=== PATIENT | male | born 1955 | race Caucasian/White ===

== ENCOUNTER 2017-11-11 00:08 | Inpatient (IN) | payer OTHER ==
[~2017-11-11] VITALS: Ht 182.9 cm; Wt 121.6 kg
[2017-11-11] VITALS (7 sets, daily range): BP systolic 118–173; BP diastolic 62–88
[~2017-11-11 00:08] MED LIST: FISH OIL300 MG; MULTI-VITAMIN1 EACH; ULTRAM50 MG PO
[2017-11-11] MEDS ORDERED: KETOROLAC TROMETHAMINE 30 MG/ML VIAL IV STA (00:13)
[2017-11-11 00:27] LABS: BASOPHILS % 0.4 % (0.0-1.0); EOSINOPHILS # (AUTO) 0.1 (0.0-0.4); EOSINOPHILS % 0.9 % (0.0-6.0); HEMATOCRIT 45.2 % (38.2-49.6); HEMOGLOBIN 15.1 g/dL (14.0-18.0); LYMPHOCYTES # (AUTO) 1.2 (1.0-3.2); LYMPHOCYTES % 11.2 % (18.0-39.1); MEAN CORPUSCULAR HEMOGLOBIN 29.4 pg (28-32); MEAN CORPUSCULAR HGB CONC 33.4 g/dL (31-35); MEAN CORPUSCULAR VOLUME 87.9 fL (81-99); MONOCYTES # (AUTO) 0.4 (0.2-0.8); NEUTROPHILS # (AUTO) 8.9 (2.1-6.9); NEUTROPHILS % 83.1 % (38.7-80.0); PLATELET COUNT 142 x10e3/uL (140-360); RED BLOOD COUNT 5.14 x10e6/uL (4.3-5.7); RED CELL DISTRIBUTION WIDTH 14.2 % (11.7-14.4)
[2017-11-11 00:32] LABS: BILIRUBIN,URINE NEGATIVE (NEGATIVE); CLARITY,URINE CLEAR (CLEAR); COLOR,URINE YELLOW (YELLOW); KETONES,URINE NEGATIVE (NEGATIVE); LEUKOCYTE ESTERASE ,URINE 1+ (NEGATIVE); NITRITE,URINE NEGATIVE (NEGATIVE); PROTEIN,URINE DIPSTICK NEGATIVE (NEGATIVE); URINE UROBILINOGEN 0.2 mg/dL (0.2 - 1)
[2017-11-11 00:35] LABS: EPITHELIAL CELLS,URINE FEW /LPF
[2017-11-11 00:36] LABS: MUCUS,URINE MODERATE (RARE)
[2017-11-11 00:47] LABS: ALBUMIN 4.3 g/dL (3.5-5.0); ALBUMIN/GLOBULIN RATIO 1.7 (0.8-2.0); ANION GAP 14.8 mmol/L (8-16); CALCIUM 9.5 mg/dL (8.4-10.2); CREATININE, SERUM 1.55 mg/dL (0.72-1.25); POTASSIUM 3.8 mmol/L (3.5-5.1)
--- NOTE | 2017-11-11 01:33 | Diagnostic Imaging Report ---
EXAM: CT ABDOMEN/PELVIS WO DATE: 11/11/2017 12:13 AM INDICATION: Right-sided pain, stone COMPARISON: 09/26/2015 TECHNIQUE: The abdomen and pelvis were scanned using a multidetector helical scanner. Coronal and sagittal reformations were obtained. Routine protocol performed. IV Contrast: 0 ml Isovue 300/370 FINDINGS: Lack of IV contrast decreases sensitivity in evaluating abdominal and pelvic organs. LOWER THORAX: Right middle lobe calcified granulomas and nonspecific 5 mm subpleural nodule. LIVER/BILIARY: Diffuse low-attenuation in keeping with hepatic steatosis. GALLBLADDER: Unremarkable SPLEEN: Unremarkable PANCREAS: Unremarkable ADRENALS: No nodules KIDNEYS: Left kidney: Left posterior renal cystic structures again noted. Mild left hydronephrosis related to a 6 mm proximal ureteral/UPJ stone; associated perinephric/periureteral stranding. Additional nonobstructing 3 mm left interpolar calculus. Right kidney: Mild right hydroureteronephrosis related to a 11 mm proximal ureteral calculus; no significant associated stranding. Additional nonobstructing 4 mm inferior renal calculus. GI TRACT: No wall thickening or evidence of obstruction. VESSELS: Mild atherosclerotic calcifications PERITONEUM/RETROPERITONEUM: No free air or fluid LYMPH NODES: No lymphadenopathy REPRODUCTIVE ORGANS/BLADDER: Suboptimally assessed due to streak artifact. Decompressed bladder. SOFT TISSUES: Multiple complex ventral bowel containing hernias without evidence of obstruction. Partially imaged nonobstructing bowel containing left inguinal hernia. BONES: Partially visualized left hip arthroplasty. Multilevel degenerative changes. IMPRESSION: 1. Mild left hydronephrosis related to a 6 mm proximal ureteral/UPJ stone with moderate inflammatory changes. 2. Mild right hydroureteronephrosis related to an 11 mm proximal ureteral calculus Signed by: Dr Shanita Paige MD on 11/11/2017 1:30 AM
[2017-11-11] MEDS ORDERED: AMLODIPINE-BEN1 EAC4 PO (01:38)
[2017-11-11] MEDS ORDERED: ONDANSETRON HCL INJ 2 MG/ML VIAL IV PRN (02:00)
[2017-11-11] MEDS ORDERED: HYDROMORPHONE 1MG/1ML INJ IV PRN (02:00)
[2017-11-11] MEDS: CEFTRIAXONE SOD 1 GM VIAL IV SCH (02:18)
[2017-11-11] MEDS: SODIUM CHLORIDE 0.9% 1000ML 1,000 ML IV SCH ×2 (02:18→20:00)
--- NOTE | 2017-11-11 07:58 | Consultation ---
DATE OF CONSULTATION: November 11, 2017 Consultation was called by Dr. Shah in the emergency room. CHIEF COMPLAINT/REASON FOR CONSULTATION: Bilateral ureteral calculi. HISTORY OF PRESENT ILLNESS: Mr. Gavin is a 62-year-old male being in his normal state of health and began experiencing sharp severe right-sided flank pain. Denied dysuria. Denied gross hematuria. PAST MEDICAL HISTORY: Notable for multiple abdominal surgeries last in 2016 and ex lap, hypertension, status post total hip, status post knee surgery. MEDICATIONS: Please see MAR. ALLERGIES: NKDA. SOCIAL HISTORY: Quit tobacco in 2005. FAMILY HISTORY: No urologic stones or malignancies. REVIEW OF SYSTEMS: Noncontributory for all systems. PHYSICAL EXAMINATION GENERAL: Elderly male in no acute distress. VITALS: Temperature 99, pulse 97, respirations 20, blood pressure 134/78. HEENT: Sclerae anicteric. NECK: Supple. BACK: Without costovertebral angle tenderness bilaterally currently. ABDOMEN: Soft. It is nontender. It is nondistended. There is no palpable mass. No palpable hernias. No palpable inguinal adenopathy. : Normal male external genitalia. EXTREMITIES: Without edema in the lower extremities. PSYCH: Alert and mood is appropriate. SKIN: Intact. Normal color. LABORATORY DATA: A CT scan revealing bilateral mild hydronephrosis, left posterior renal cystic structure, mild left hydronephrosis with a 6 mm left proximal UPJ stone. An additional 3 mm left midpole stone. Mild right hydronephrosis and an 11 mm proximal ureteral calculus, and a 4 mm right lower pole calculus. Multiple complex ventral bowel hernias without obstruction. Left hip arthroplasty. Urinalysis with 6-10 reds and 6-10 whites. AST 39, ALT of 66, bilirubin 1.6. Sodium 141, potassium 3.8, chloride 110, bicarb 20, BUN 18, creatinine 1.55, glucose 146. Hemoglobin 15, hematocrit 45, platelet count 142,000, and white cell count 10,700. IMPRESSION 1. Bilateral ureteral calculi. 2. Bilateral renal calculi. 3. Bilateral hydronephrosis, mild. 4. Microscopic hematuria. 5. Question of urinary tract infection. 6. Renal colic. 7. Hypertension. PLAN: The patient has been on broad-spectrum antibiotics as he has mild hydronephrosis and is minimally symptomatic. Will employ a brief trial of passage for the 6-mm stone on the left. Should this fail, the patient would benefit from bilateral stenting and shockwave lithotripsy. Thank you for allowing me to participate in the care of your patient. We will be happy to follow along with you. Job#: [id number] [place]
--- NOTE | 2017-11-11 08:08 | Diagnostic Imaging Report ---
PROCEDURE:X-RAY ABDOMEN - KUB COMPARISON:[facility], CT, CT ABDOMEN/PELVIS WO, 11/11/2017, 0:41. INDICATIONS:CALCULUS OF KIDNEY FINDINGS: There is a 1 cm proximal right ureteral stone. Right interpolar renal stone measures 3.5 mm. Proximal left ureteral stone measures 6.6 mm. There is also a small left interpolar stone. There are no dilated loops of bowel to suggest obstruction. There are no masses. Left pelvic calcification appears compatible with a phlebolith. There is no evidence of free air. No acute osseous abnormalities are present. Left femoral prosthesis partially visualized. CONCLUSION: Bilateral nephrolithiasis. Pérez James D.O. Dictated by: Pérez James D.O. on 11/11/2017 at 8:13 Electronically approved by: Pérez James D.O. on 11/11/2017 at 8:13
[2017-11-11] MEDS ORDERED: NON-FORMULARY MEDICATION (Amlodipine Besylate/Benazepril (Amlodipine-Benazepril 5-40 Mg) 1 PO SCH (09:00)
[2017-11-11] MEDS: AMLODIPINE BESYLATE 5 MG TAB PO SCH (10:03)
[2017-11-11] MEDS: BENAZEPRIL HCL 10 MG TAB PO SCH (10:03)
[2017-11-12] VITALS (7 sets, daily range): BP systolic 129–152; BP diastolic 66–101
[2017-11-12] MEDS: CEFTRIAXONE SOD 1 GM VIAL IV SCH (01:44)
[2017-11-12 04:50] LABS: BASOPHILS % 0.5 % (0.0-1.0); EOSINOPHILS # (AUTO) 0.4 (0.0-0.4); EOSINOPHILS % 7.4 % (0.0-6.0); HEMOGLOBIN 13.1 g/dL (14.0-18.0); LYMPHOCYTES # (AUTO) 2.3 (1.0-3.2); LYMPHOCYTES % 39.6 % (18.0-39.1); MEAN CORPUSCULAR HEMOGLOBIN 29.3 pg (28-32); MEAN CORPUSCULAR HGB CONC 34.5 g/dL (31-35); MONOCYTES # (AUTO) 0.5 (0.2-0.8); MONOCYTES % 7.9 % (4.4-11.3); NEUTROPHILS # (AUTO) 2.6 (2.1-6.9); NEUTROPHILS % 44.4 % (38.7-80.0); PLATELET COUNT 137 x10e3/uL (140-360); RED BLOOD COUNT 4.47 x10e6/uL (4.3-5.7); RED CELL DISTRIBUTION WIDTH 14.1 % (11.7-14.4)
[2017-11-12 05:07] LABS: ALANINE AMINOTRANSFERASE 50 IU/L (0-55); ALBUMIN 3.3 g/dL (3.5-5.0); ALBUMIN/GLOBULIN RATIO 1.7 (0.8-2.0); ALKALINE PHOSPHATASE 49 IU/L (40-150); ANION GAP 11.9 mmol/L (8-16); BLOOD UREA NITROGEN 14 mg/dL (7-26); BUN/CREATININE RATIO 14 (6-25); CALCIUM 8.3 mg/dL (8.4-10.2); CARBON DIOXIDE 22 mmol/L (22-29); CHLORIDE 113 mmol/L (98-107); EST GLOMERULAR FILTRATION RATE > 60 ML/MIN (60-); GLUCOSE 93 mg/dL (74-118); POTASSIUM 3.9 mmol/L (3.5-5.1); SODIUM 143 mmol/L (136-145)
[2017-11-12] MEDS: BENAZEPRIL HCL 10 MG TAB PO SCH (08:37)
[2017-11-12] MEDS: AMLODIPINE BESYLATE 5 MG TAB PO SCH (08:37)
--- NOTE | 2017-11-12 11:47 | Operative Report ---
DATE OF PROCEDURE: November 12, 2017 PREOPERATIVE DIAGNOSIS: Right ureteral stone. POSTOPERATIVE DIAGNOSIS: Right ureteral stone. PROCEDURES 1. Staged right-sided shockwave lithotripsy. 2. Supervision of fluoroscopy. ANESTHESIA: General. ESTIMATED BLOOD LOSS: Minimal. COMPLICATIONS: None. INDICATIONS: Mr. Gavin is a very pleasant 62-year-old male with a history of a large 10 x 11 mm right proximal ureteral stone. He and I had a long discussion about alternatives, risks and benefits, including doing nothing, shock wave lithotripsy, ureteroscopy, percutaneous surgery and open surgery, and inclusive of fact of the placement of a stent and recommendation for this. The patient states from his internet research he would like to try to the noninvasive approach first. Should this fail, will likely place him on . He voiced understanding of the options, alternatives, risks and benefits and elected to proceed. PROCEDURE IN DETAIL: After informed consent was obtained, the patient was taken to the operative suite, placed supine and underwent general anesthesia by the anesthesia service. The stone was then localized in the X, Y and Z planes. A total of 3000 shocks at a maximum power setting of 7 were delivered to the stone. The patient tolerated the procedure well and was transported to the recovery room in excellent condition. SUPERVISION OF FLUOROSCOPY: I was present throughout the entire procedure and I supervised the use of fluoroscopy for all 59 seconds. Total radiation dose of 57.2 milligrades per meter squared. Job#: [id number]
[2017-11-12] MEDS ORDERED: DEXAMETHASONE SOD PHOS INJ 4 MG/ML VIAL ONE (17:53)
[2017-11-12] MEDS ORDERED: SEVOFLURANE INHAL SOLN 250 ML PEN BTL ONE (17:53)
[2017-11-12] MEDS ORDERED: ONDANSETRON HCL INJ 2 MG/ML VIAL ONE (17:53)
[2017-11-12] MEDS ORDERED: PROPOFOL IV EMULSION 10 MG/ML 20 ML VIAL ONE (17:53)
[2017-11-12] MEDS ORDERED: LIDOCAINE HCL 2% LOCAL INJ 5 ML SDV VIAL INJ ONE (17:53)
[2017-11-12] MEDS ORDERED: ACETAMINOPHEN 1000 MG/100 ML IV ONE (17:53)
[2017-11-12] MEDS ORDERED: FENTANYL CITRATE/PF 100MCG/2 ML INJ ONE (18:12)
[2017-11-12] MEDS ORDERED: MIDAZOLAM HCL 2 MG/2 ML VIAL ONE (18:12)
[2017-11-12] MEDS: SODIUM CHLORIDE 0.9% 1000ML 1,000 ML IV SCH (22:38)
[2017-11-13] VITALS: BP 137/71
[2017-11-13] MEDS: CEFTRIAXONE SOD 1 GM VIAL IV SCH (02:33)
[2017-11-13 04:00] VITALS: BP 137/72
[2017-11-13 07:30] VITALS: BP 137/81
[2017-11-13 07:53] VITALS: BP 137/81
[2017-11-13] MEDS: BENAZEPRIL HCL 10 MG TAB PO SCH (08:59)
[2017-11-13] MEDS: AMLODIPINE BESYLATE 5 MG TAB PO SCH (08:59)
[2017-11-13 11:53] VITALS: BP 130/81
== END 2017-11-13 14:37 | disposition home or self-care (01) | DRG 660 ==
LOC: ER 00:08 → ERHOLD 01:58 → MED/SURG3 02:44
PROC: 0TC08ZZ Extirpation of Matter from Right Kidney, Via Natural or Artificial Opening Endoscopic (ICD-10-PCS; principal; 2017-11-12 06:38)
DX: N13.2 Hydronephrosis with renal and ureteral calculous obstruction (principal); N20.2 Calculus of kidney with calculus of ureter; Z87.891 Personal history of nicotine dependence; R31.29 Other microscopic hematuria; N39.0 Urinary tract infection, site not specified; I10 Essential (primary) hypertension; K76.0 Fatty (change of) liver, not elsewhere classified
CPT/HCPCS: 36415; 50590; 74018; 74176; 80053; 81001; 85025; 99284; J0696; J1100; J1885; J2001; J2250; J2405; J7030

== ENCOUNTER → 2017-12-04 | Day surgery (SDC) | payer OTHER ==
[~2017-12-04] MED LIST changes: +AMLODIPINE-BEN1 EAC4 PO; +ASPIRIN81 MG PO; +BIOTIN PO; +CALCIUM PO; +CEFTRIAXONE SOD 1 GM VIAL ONE; +DEXAMETHASONE SOD PHOS INJ 4 MG/ML VIAL ONE; +FENTANYL CITRATE/PF 100MCG/2 ML INJ ONE; +FLOMAX0.4 MG PO; +GLUCOSAMINE &1 EAC1 PO; +LIDOCAINE HCL 2% LOCAL INJ 5 ML SDV VIAL INJ ONE; +MIDAZOLAM HCL 2 MG/2 ML VIAL ONE; +OMEGA 3 FISH O1 EACH PO; +ONDANSETRON HCL INJ 2 MG/ML VIAL ONE; +PENICILLIN V P500 MG PO; +PROPOFOL IV EMULSION 10 MG/ML 20 ML VIAL ONE; +SEVOFLURANE INHAL SOLN 250 ML PEN BTL ONE; +ULTRAM 50MG50 MG PO; +VITAMIN C1000 MG PO; +ZINC PO; +ZYRTEC10 MG PO
--- NOTE | 2017-12-04 07:12 | Diagnostic Imaging Report ---
PROCEDURE:X-RAY ABDOMEN - KUB COMPARISON:KUB 11/11/17. INDICATIONS:PRE-OP FINDINGS: Bilateral calcifications overlying the kidneys appear unchanged from prior KUB, including a 1 cm proximal ureteral stone, right interpolar stone measuring 3.5 mm, and proximal left ureteral stone measuring 6.6 mm. Additional small left interpolar stone is unchanged. Phlebolith projects over the pelvis. There is a non-obstructed bowel-gas pattern. There are no acute osseous abnormalities. The lung bases are clear. CONCLUSION: Bilateral nephrolithiasis, similar to KUB on 11/11/17. Dictated by: NUPUR ALVARENGA M.D. on 12/04/2017 at 7:18 Electronically approved by: NUPUR ALVARENGA M.D. on 12/04/2017 at 7:18
--- NOTE | 2017-12-04 08:47 | Operative Report ---
DATE OF PROCEDURE: December 04, 2017 PREOPERATIVE DIAGNOSIS: Left ureteral calculus. POSTOPERATIVE DIAGNOSIS: Left ureteral calculus. PROCEDURES: 1. Staged shockwave lithotripsy. 2. Supervision of fluoroscopy. ANESTHESIA: General. ESTIMATED BLOOD LOSS: Minimal. COMPLICATIONS: None. INDICATIONS FOR PROCEDURE: Mr. Gavin is a very pleasant 62-year-old male with bilateral ureteral calculi. He and I had a long discussion regarding the alternatives, risks and benefits including doing nothing, shockwave lithotripsy, ureteroscopy, percutaneous surgery, and open surgery. He voiced understanding of the options, alternatives, risks and benefits. As shockwave lithotripsy has worked on the right side, he elected to proceed with this on the left side. PROCEDURE IN DETAIL: After informed consent was obtained, the patient was taken to the operative suite. He was placed on lithotripsy table. He underwent general anesthesia by the anesthesia services. The stone was then localized in the X, Y, and Z planes. A total of 3000 shocks at a maximum power setting of 6 delivered to the stone. Patient tolerated the procedure well and was transported to the recovery room in excellent condition. SUPERVISION OF FLUOROSCOPY: I was present throughout the entire procedure and I supervised the use of fluoroscopy as no radiologist was present. Job#: [id number]
== END | disposition home or self-care (01) ==
LOC: OR 05:11
PROVIDERS: ATTEND Urology
DX: N20.1 Calculus of ureter (principal); N39.0 Urinary tract infection, site not specified; N13.30 Unspecified hydronephrosis; N40.1 Benign prostatic hyperplasia with lower urinary tract symptoms; R35.1 Nocturia; N13.8 Other obstructive and reflux uropathy; I10 Essential (primary) hypertension; Z01.810 Encounter for preprocedural cardiovascular examination; Z79.82 Long term (current) use of aspirin; Z68.38 Body mass index [BMI] 38.0-38.9, adult; Z96.642 Presence of left artificial hip joint; Z87.891 Personal history of nicotine dependence
CPT/HCPCS: 50590; 74018; 93005; J0696; J1100; J2001; J2250; J2405

== ENCOUNTER 2018-11-20 16:26 | Inpatient (IN) | payer OTHER ==
[~2018-11-20] VITALS: Ht 182.9 cm; Wt 124.4 kg
[~2018-11-20 16:26] MED LIST changes: -CEFTRIAXONE SOD 1 GM VIAL ONE; -DEXAMETHASONE SOD PHOS INJ 4 MG/ML VIAL ONE; -FENTANYL CITRATE/PF 100MCG/2 ML INJ ONE; -LIDOCAINE HCL 2% LOCAL INJ 5 ML SDV VIAL INJ ONE; -MIDAZOLAM HCL 2 MG/2 ML VIAL ONE; -ONDANSETRON HCL INJ 2 MG/ML VIAL ONE; -PROPOFOL IV EMULSION 10 MG/ML 20 ML VIAL ONE; -SEVOFLURANE INHAL SOLN 250 ML PEN BTL ONE
[2018-11-20] MEDS ORDERED: SODIUM CHLORIDE 0.9% 1000ML 1,000 ML IV STA (16:58)
[2018-11-20 17:21] LABS: BASOPHILS % 0.1 % (0.0-1.0); EOSINOPHILS % 0.2 % (0.0-6.0); HEMATOCRIT 43.9 % (38.2-49.6); HEMOGLOBIN 15.2 g/dL (14.0-18.0); LYMPHOCYTES % 4.8 % (18.0-39.1); MEAN CORPUSCULAR HEMOGLOBIN 29.5 pg (28-32); MEAN CORPUSCULAR HGB CONC 34.6 g/dL (31-35); MEAN CORPUSCULAR VOLUME 85.2 fL (81-99); MONOCYTES # (AUTO) 1.5 (0.2-0.8); MONOCYTES % 7.4 % (4.4-11.3); NEUTROPHILS # (AUTO) 17.6 (2.1-6.9); NEUTROPHILS % 86.7 % (38.7-80.0); PLATELET COUNT 151 x10e3/uL (140-360); RED BLOOD COUNT 5.15 x10e6/uL (4.3-5.7); RED CELL DISTRIBUTION WIDTH 14.2 % (11.7-14.4)
[2018-11-20 17:22] LABS: BILIRUBIN,URINE SMALL (NEGATIVE); CLARITY,URINE CLOUDY (CLEAR); COLOR,URINE ORANGE (YELLOW); KETONES,URINE TRACE (NEGATIVE); LEUKOCYTE ESTERASE ,URINE LARGE (NEGATIVE); NITRITE,URINE POSITIVE (NEGATIVE); URINE UROBILINOGEN 4 mg/dL (0.2 - 1)
[2018-11-20 17:32] LABS: PROTEIN,URINE DIPSTICK 3+ (NEGATIVE)
[2018-11-20 17:33] LABS: BACTERIA,URINE MANY /HPF; EPITHELIAL CELLS,URINE FEW /LPF
--- NOTE | 2018-11-20 17:39 | Diagnostic Imaging Report ---
EXAMINATION: CHEST SINGLE (PORTABLE) INDICATION: ^ERMD ORDER ^Y COMPARISON: CT abdomen pelvis 11/11/2017 FINDINGS: AP view TUBES and LINES: None. LUNGS: Lungs are well inflated. Unchanged view right lower lobe calcified granulomas. There is no evidence of pneumonia or pulmonary edema. PLEURA: No pleural effusion or pneumothorax. HEART AND MEDIASTINUM: The cardiomediastinal silhouette is unremarkable.. BONES AND SOFT TISSUES: No acute osseous lesion. Soft tissues are unremarkable. UPPER ABDOMEN: No free air under the diaphragm. IMPRESSION: No acute thoracic abnormality. Signed by: Dr. Ambreen Reyez M.D. on 11/20/2018 5:36 PM
[2018-11-20 17:46] LABS: ALBUMIN 3.9 g/dL (3.5-5.0); ALBUMIN/GLOBULIN RATIO 1.2 (0.8-2.0); CALCIUM 10.2 mg/dL (8.4-10.2); CREATININE, SERUM 1.59 mg/dL (0.72-1.25)
[2018-11-20] MEDS: CEFTRIAXONE SOD 1 GM/NS 50 ML 50 ML IV SCH (18:40)
[2018-11-20] MEDS: ACETAMINOPHEN 325 MG TAB PO PRN (18:57)
--- NOTE | 2018-11-20 19:19 | NUR ---
REPORT TO JÚNIOR PIERSON AT THIS TIME; INFORMED NURSE PATIENT NEEDED TO GO TO CT AFTER 500 CC OF BOLUS INFUSED - BOLUS GOING AT THIS TIME. PATIENT ALSO RECENTLY MEDICATED FOR TEMP 102.7 WITH 650 MG TYLENOL.
[2018-11-20 20:23] VITALS: BP 149/63
--- NOTE | 2018-11-20 20:25 | Diagnostic Imaging Report ---
EXAM: CT Abdomen and Pelvis WITH contrast INDICATION: ^uti ^[id number] ^1920 COMPARISON: Chest radiograph 11/20/2018 on KUB 12/04/2017. CT abdomen and pelvis 11/11/2017. TECHNIQUE: Abdomen and pelvis were scanned utilizing a multidetector helical scanner from the lung base to the pubic symphysis after administration of IV contrast. Coronal and sagittal reformations were obtained. Routine protocol was performed. Scan was performed when during portal venous phase. IV CONTRAST: 100 mL of Isovue-370 ORAL CONTRAST: Water RADIATION DOSE: Total DLP: 1051 mGy*cm Estimated effective dose: (DLP x 0.015 x size factor) mSv COMPLICATIONS: None FINDINGS: LINES and TUBES: Bilateral ureteral stents are in adequate position. The proximal aspect of the right ureteral stent is in the right renal pelvis and terminates in the urinary bladder. The left proximal left ureteral stent is in the inferior calyx and terminates in the urinary bladder. LOWER THORAX: Unremarkable HEPATOBILIARY: No focal hepatic lesions. No biliary ductal dilation. GALLBLADDER: No radio-opaque stones or sludge. No wall thickening. SPLEEN: No splenomegaly. PANCREAS: No focal masses or ductal dilatation. ADRENALS: No adrenal nodules KIDNEYS/URETERS: There is normal perfusion of both kidneys. Bilateral ureteral stents as described above. Right kidney/ureter: There is persistent mild pelviectasis and proximal hydroureter, improved when compared to 11/11/2017. No calcified stones in the right kidney/ureter. Left kidney/ureter: 6 mm calcified stone in the inferior pole of the left kidney is increased in size when compared to prior exam. There is unchanged mild hydroureteronephrosis. Previously noted small calcified stone in the upper pole of the left kidney is not visualized on this exam. Few foci of air in the left renal pelvis and calyxes may be due to manipulation of the ureteral stent rather than infection, however these cannot be excluded. 2.9 cm inferior pole left renal stent is unchanged. Minimal perinephric fat stranding and minimal fluid collection. GI TRACT: No abnormal distention, wall thickening, or evidence of bowel obstruction. Appendix is normal. PELVIC ORGANS/BLADDER: Unremarkable. LYMPH NODES: No lymphadenopathy. VESSELS: Unremarkable. PERITONEUM / RETROPERITONEUM: No free air or fluid. BONES: Partially visualized left hip replacement. SOFT TISSUES: Large wide neck anterior ventral hernia containing multiple loops of nondilated small and large bowel. There is also a large left inguinal hernia containing multiple loops of nondilated small and large bowel. No fluid collections or fat stranding within the hernias. IMPRESSION: Bilateral ureteral stents. Increase in size of the now 6 mm calcified stone in the inferior pole of the left kidney. There is unchanged mild hydroureteronephrosis. Few foci of air in the left kidney may be due to manipulation of the stent rather than infection. Correlate with urinary analysis. No calcified stones on the right. Improved right hydronephrosis. Signed by: Dr. Ambreen Reyez M.D. on 11/20/2018 8:21 PM
[2018-11-20 20:30] VITALS: BP 149/63
--- NOTE | 2018-11-20 20:30 | NUR ---
Patient received via stretcher from ER accompanied by . JANINEO x 4. Patient had no complaints of pain. Respirations even and non-labored. Admission history obtained. Initial physical assessment performed. Patient oriented to room, call light and plan of care. Fall precautions implemented. Patient instructed to call for assistance when needed. Call light within reach.
[2018-11-20 21:20] VITALS: BP 149/63
[2018-11-20] MEDS ORDERED: IOPAMIDOL 370 MG/ML 200 ML INFUS..BTL INJ ONE (22:37)
[2018-11-20] MEDS ORDERED: SODIUM CHLORIDE 0.9% 50ML 50 ML ONE (22:37)
[2018-11-20 23:54] VITALS: BP 113/71
[2018-11-21] VITALS (8 sets, daily range): BP systolic 96–125; BP diastolic 55–68
[2018-11-21] MEDS: ACETAMINOPHEN 325 MG TAB PO PRN ×2 (00:59→05:20)
[2018-11-21] MEDS ORDERED: PHENAZOPYRIDIN100 MG PO (01:13)
[2018-11-21] MEDS ORDERED: CETIRIZINE HCL10 M1 PO (01:13)
--- NOTE | 2018-11-21 06:53 | NUR ---
Shift report given to oncoming nurse .
[2018-11-21] MEDS: LACTATED RINGER'S 1,000 ML IV SCH ×2 (12:01→20:37)
[2018-11-21] MEDS ORDERED: HEPARIN SOD (PORCINE) 5,000 UNIT/ML VIAL SC ONE (12:30)
[2018-11-21] MEDS: IBUPROFEN 200 MG TAB PO PRN ×2 (12:46→19:08)
--- NOTE | 2018-11-21 16:03 | NUR ---
Nutrition Screen Note RD Recommendation for Physician: - Continue Cardiac diet Plan of Care: RD following, monitoring for tolerance and adequacy Nutrition reason for involvement: Nutrition Risk Trigger- MST Primary Diagnose(s): UTI PMH: No H&P available per chart Ht: 72 in Wt: 268 lb BMI: 36.3 kg/m2 IBW: [address] Assessment: (11/21) 63 YOM admitted for UTI with L kidney stones and stents. No H& P available. Pt seen today per MST screen. Pt reports good appetite and po intake [employer], reports tolerating diet currently. Pt reports intentional wt loss over the past 6 mo, could not quantify, and states wt of 269# 1 mo ago. pt denies any GI distress. Pt and family at bedside with no questions or concerns at time of visit. Chart reviewed. Labs and meds reviewed. Will monitor and continue to follow. Current Diet: Cardiac Malnutrition Evaluation (11/21/18) The patient does not meet criteria for a specified degree of malnutrition at this time. Will re-evaluate at follow-up as appropriate. Diet Education Needs Assessment: Diet education not indicated. Nutrition Care Level: Low Signed: Lainey Kruger RD, LD, [facility]
[2018-11-21] MEDS: CEFTRIAXONE SOD 1 GM/NS 50 ML 50 ML IV SCH (17:19)
[2018-11-21] MEDS: LORATADINE 10 MG TAB PO SCH (21:45)
[2018-11-21] MEDS: FLUTICASONE PROPIONATE NASAL SPRAY NS SCH (21:45)
[2018-11-22] VITALS (7 sets, daily range): BP systolic 114–149; BP diastolic 67–78
[2018-11-22] MEDS: IBUPROFEN 200 MG TAB PO PRN ×4 (03:43→23:08)
[2018-11-22] MEDS: LACTATED RINGER'S 1,000 ML IV SCH ×2 (03:43→13:21)
[2018-11-22 05:57] LABS: BASOPHILS % 0.2 % (0.0-1.0); EOSINOPHILS % 0.3 % (0.0-6.0); HEMATOCRIT 37.5 % (38.2-49.6); HEMOGLOBIN 12.9 g/dL (14.0-18.0); LYMPHOCYTES % 7.5 % (18.0-39.1); MEAN CORPUSCULAR HEMOGLOBIN 29.8 pg (28-32); MEAN CORPUSCULAR HGB CONC 34.4 g/dL (31-35); MEAN CORPUSCULAR VOLUME 86.6 fL (81-99); NEUTROPHILS # (AUTO) 10.6 (2.1-6.9); NEUTROPHILS % 83.1 % (38.7-80.0); PLATELET COUNT 109 x10e3/uL (140-360); RED BLOOD COUNT 4.33 x10e6/uL (4.3-5.7); RED CELL DISTRIBUTION WIDTH 14.1 % (11.7-14.4)
[2018-11-22 06:29] LABS: ANION GAP 13.7 mmol/L (8-16); CALCIUM 8.8 mg/dL (8.4-10.2); CREATININE, SERUM 1.45 mg/dL (0.72-1.25); POTASSIUM 3.7 mmol/L (3.5-5.1)
[2018-11-22 06:32] LABS: INR 1.19; PROTHROMBIN TIME 15.7 seconds (11.9-14.5)
[2018-11-22 06:33] LABS: PARTIAL THROMBOPLASTIN TIME 39.8 seconds (23.8-35.5)
[2018-11-22 06:47] LABS: ALBUMIN 2.7 g/dL (3.5-5.0); BILIRUBIN,DIRECT 0.6 mg/dL (0.0-0.5)
[2018-11-22] MEDS: LORATADINE 10 MG TAB PO SCH (08:40)
[2018-11-22] MEDS: FLUTICASONE PROPIONATE NASAL SPRAY NS SCH ×2 (08:40→16:42)
[2018-11-22] MEDS ORDERED: NON-FORMULARY MEDICATION (Cetirizine Hcl (Zyrtec) 10 MG) PO SCH (09:00)
--- NOTE | 2018-11-22 09:00 | NUR ---
patient positive for ESBL in urine, implemented contact isolation. aware. isolation explained to patient and states understandment.
[2018-11-22] MEDS ORDERED: LACTULOSE SYRUP 20 GM/30 ML UDC PO NR (10:00)
[2018-11-22] MEDS: MEROPENEM 500MG/ NS 50ML 50 ML IV SCH ×2 (13:35→23:08)
[2018-11-22] MEDS: LACTOBACILLUS ACIDOPHILUS CAPSULE PO SCH (16:42)
--- NOTE | 2018-11-22 19:06 | NUR ---
walking rounds done with oncoming nurse, pt in bed call light within reach.
[2018-11-23] VITALS (9 sets, daily range): BP systolic 111–147; BP diastolic 65–82
[2018-11-23] MEDS: LACTATED RINGER'S 1,000 ML IV SCH (01:52)
[2018-11-23 05:40] LABS: BASOPHILS % 0.5 % (0.0-1.0); EOSINOPHILS # (AUTO) 0.1 (0.0-0.4); EOSINOPHILS % 1.3 % (0.0-6.0); HEMOGLOBIN 12.7 g/dL (14.0-18.0); MEAN CORPUSCULAR HEMOGLOBIN 29.1 pg (28-32); MEAN CORPUSCULAR HGB CONC 33.4 g/dL (31-35); MONOCYTES # (AUTO) 0.6 (0.2-0.8); MONOCYTES % 9.3 % (4.4-11.3); NEUTROPHILS # (AUTO) 4.5 (2.1-6.9); NEUTROPHILS % 72.4 % (38.7-80.0); PLATELET COUNT 129 x10e3/uL (140-360); RED BLOOD COUNT 4.37 x10e6/uL (4.3-5.7); RED CELL DISTRIBUTION WIDTH 14.3 % (11.7-14.4)
[2018-11-23] MEDS: MEROPENEM 500MG/ NS 50ML 50 ML IV SCH ×3 (06:00→18:00)
[2018-11-23] MEDS: IBUPROFEN 200 MG TAB PO PRN (06:00)
[2018-11-23 06:08] LABS: ANION GAP 13.8 mmol/L (8-16); CALCIUM 8.7 mg/dL (8.4-10.2); CREATININE, SERUM 1.26 mg/dL (0.72-1.25); POTASSIUM 3.8 mmol/L (3.5-5.1)
--- NOTE | 2018-11-23 07:10 | NUR ---
RCD PT AT BED PT IS ALERT AND ORIENTED RESTING ON BED NO SIGNS OF ANY DISTRESS NOTED IV PATENT AND RUNNING 75 ML BED LOW AND LOCKED CALL LIGHT IN REACH
[2018-11-23] MEDS: LACTOBACILLUS ACIDOPHILUS CAPSULE PO SCH ×2 (09:00→16:44)
[2018-11-23] MEDS: FLUTICASONE PROPIONATE NASAL SPRAY NS SCH ×2 (09:00→16:44)
[2018-11-23] MEDS: LORATADINE 10 MG TAB PO SCH (09:00)
--- NOTE | 2018-11-23 13:00 | NUR ---
bladder scan done by the order of dr redding,ersidual urine 81 ml
[2018-11-23] MEDS: IBUPROFEN 400 MG TAB PO PRN ×2 (14:36→20:46)
--- NOTE | 2018-11-23 19:10 | NUR ---
PT RESTING ON BED BED SIDE REPORT GIVEN TO ONCOMING NURSE
[2018-11-24] MEDS: MEROPENEM 500MG/ NS 50ML 50 ML IV SCH ×3 (00:14→12:23)
[2018-11-24] MEDS: IBUPROFEN 400 MG TAB PO PRN (02:27)
[2018-11-24 04:20] VITALS: BP_SYST 113; BP_SYST 135; BP_DIAS 58; BP_DIAS 62
[2018-11-24 07:38] VITALS: BP 130/78
[2018-11-24 08:00] VITALS: BP 130/78
[2018-11-24] MEDS: LACTOBACILLUS ACIDOPHILUS CAPSULE PO SCH (08:10)
[2018-11-24] MEDS: FLUTICASONE PROPIONATE NASAL SPRAY NS SCH (08:10)
[2018-11-24] MEDS: LORATADINE 10 MG TAB PO SCH (08:10)
[2018-11-24 12:14] VITALS: BP 134/73
--- NOTE | 2018-11-24 14:15 | NUR ---
The pt's iv was removed and discharge information provided to the pt. and prescriptions were given. the pt. was esc to private care in stable condition.orted
--- NOTE | 2018-11-25 11:25 | Discharge Summary ---
PRIMARY CARE DOCTOR: Dr. Tyler Abarca FINAL DIAGNOSIS: Severe sepsis present on admission due to ESBL, Klebsiella, and enterococcus pyelonephritis. SECONDARY DIAGNOSES: 1. Nephrolithiasis with mild hydronephrosis with recent bilateral ureteral stent. 2. Hyponatremia, resolved. 3. Acute kidney injury, resolved. PROCEDURE/STUDIES PERFORMED: CT of the abdomen and pelvis. CONSULTANTS: None. HISTORY: Per H and P. HOSPITAL COURSE: The patient was admitted. Initially, he was placed on IV Rocephin, however, on hospital day #2, urine culture came back as ESBL, therefore his antibiotic was switched to meropenem. The patient did well. Currently, the patient has been afebrile for about 36 hours and his white blood cell count is normal now. His renal function is improving, however, the patient had mild thrombocytopenia, therefore cannot get any chemical DVT prophylaxis. The patient did not have any urinary retention. Based on the sensitivity, the patient will be going home on ciprofloxacin and Macrobid. The patient knows that he has to follow up with his [facility] urologist within a week. The patient was seen and examined today. It took 32 minutes total to discharge this patient. I have also printed out a urine culture results and gave it to him. He is supposed to bring it to his urologist appointment. CONDITION ON DISCHARGE: Improved. DISCHARGE MEDICATIONS: Please see medication reconciliation form. Yiching MD TEDDY Oliveros/DENISE /[id number] cc: Tyler Abarca M.D. [facility]
== END 2018-11-24 14:15 | disposition home or self-care (01) | DRG 872 ==
LOC: ER 16:26 → ERHOLD 17:39 → MED/SURG2 19:41
PROVIDERS: ADMIT Internal Medicine; ATTEND Internal Medicine
DX: A41.89 Other specified sepsis (principal); E87.1 Hypo-osmolality and hyponatremia; N17.9 Acute kidney failure, unspecified; N10 Acute pyelonephritis; N13.2 Hydronephrosis with renal and ureteral calculous obstruction; B96.1 Klebsiella pneumoniae [K. pneumoniae] as the cause of diseases classified elsewhere; R65.20 Severe sepsis without septic shock; Z16.12 Extended spectrum beta lactamase (ESBL) resistance; D69.6 Thrombocytopenia, unspecified; Z87.891 Personal history of nicotine dependence
CPT/HCPCS: 36415; 71045; 74177; 80048; 80053; 80076; 81001; 83605; 85025; 85610; 85730; 87040; 87086; 87186; 93005; 99284; J0696; J1644; J7030; J7121; Q9967